=== PATIENT | female | born 1945 | race Caucasian/White ===

== ENCOUNTER 2016-09-08 05:56 | Observation (INO) | payer MEDICARE, OTHER ==
[2016-09-01 14:04] LABS: HEMATOCRIT 38.3 % (36.0-48.0); HEMOGLOBIN 12.3 g/dL (12.0-16.0)
[2016-09-01 14:18] LABS: BUN (BLOOD UREA NITROGEN) 12 MG/DL (6-23); CALCIUM, SERUM 8.9 MG/DL (8.5-10.4); CHLORIDE, SERUM 102 MMOL/L (96-112); CO2 (CARBON DIOXIDE) 29 MMOL/L (24-34); CREATININE 1.14 MG/DL (0.55-1.02); GFR AFRICAN AMERICAN 56 ML/MIN (>=60); GFR NON AFRICAN AMERICAN 49 ML/MIN (>=60); GLUCOSE, SERUM 108 MG/DL (60-99); POTASSIUM, SERUM 3.7 MMOL/L (3.5-5.3); SODIUM, SERUM 141 MMOL/L (135-148)
--- NOTE | ~2016-09-08 | OP ---
Record Of Operation [facility] [address] [place]. [address] NAME: AIDA CANCHOLA : 47 STATUS : ADM IN PAT#: [id number] AGE: 71 ADM/REG DATE : 09/08/16 MR#: [id number] REPORT SERV DATE: 09/08/16 DICTATED BY: MERRITT MEZA DATE: 09/08/16 REPORT STATUS : Draft TRANSCRIBED BY: MODL DATE: 09/08/16 DATE OF PROCEDURE: 09/08/2016 PREOPERATIVE DIAGNOSIS: L2 through S1 disk disease and stenosis with lumbar radiculopathy. POSTOPERATIVE DIAGNOSIS: L2 through S1 disk disease and stenosis with lumbar radiculopathy. PROCEDURE: L2 through S1 open laminectomy and bilateral foraminotomies, decompression of the L2-S1 nerve roots bilaterally, use of neuromonitoring. SURGEON: Merritt Meza DO. ANESTHESIA: General. ESTIMATED BLOOD LOSS: 150 mL. COMPLICATIONS: Incidental durotomy. INDICATIONS: The patient is a pleasant 71-year-old, with intractable back and leg pain, failed conservative treatment. After discussion of risks and benefits and neurologic decline, the patient elected to proceed with surgical intervention. PROCEDURE IN DETAIL: I identified the patient in the holding area. Consent was obtained, went to the operating room, underwent general anesthesia with endotracheal intubation, turned to prone position, prepped and draped in the usual sterile fashion, operative safety pause was performed, and then we proceeded with surgery. A midline longitudinal incision was made at L2 down to S1 taken down through the fascial layer. Paraspinous muscles were subperiosteally elevated to the medial aspect of the facet joints. Self-retaining retractors were placed. Nazlini elevator was placed, and lateral fluoroscopic image was used to verify operative level. Rongeur was used to remove the spinous processes and underlying lamina at L2 through S1. Kerrison removed remaining lamina and underlying ligamentum flavum, performed foraminotomies and partial facetectomies at L2 through S1, decompressing the L2-S1 nerve roots bilaterally. Each of the nerves was free of compression at the end the case, there was a small area of a dural leak from severe erosion from long-term compression. This was sealed with a suture and Tisseel sealant for watertight seal, checked with Valsalva. Irrigation was performed. Hemostasis was achieved. A gram of vancomycin powder was sprinkled over the surgical wound. A subfascial drain was placed. Layered closure was performed. Sterile dressings were applied. The patient was awoken, extubated, and taken to the recovery room in stable condition. OPERATIVE FINDINGS: L2 through S1 disk disease and severe stenosis. No sustained neuromonitoring alerts. JCE/MODL Record Of Operation [address] [address] NAME: AIDA CANCHOLA : 46 STATUS : ADM IN PAT#: [id number] AGE: 71 ADM/REG DATE : 09/08/16 MR#: [id number] REPORT SERV DATE: 09/08/16 DICTATED BY: MERRITT MEZA DATE: 09/08/16 REPORT STATUS : Draft TRANSCRIBED BY: ENRIQUE DATE: 09/08/16 Merritt Meza DO / [id number] CC: DO Artur Pack M.D.
--- NOTE | ~2016-09-08 | PREOPHP ---
PreOp History and Physical [place] [facility] [place]. [address] NAME: AIDA CANCHOLA : 46 STATUS : ADM IN PAT#: [id number] AGE: 71 ADM/REG DATE : 09/08/16 MR#: [id number] REPORT SERV DATE: 09/08/16 DICTATED BY: MERRITT MANSFIELD DATE: 09/08/16 REPORT STATUS : Draft TRANSCRIBED BY: ENRIQUE DATE: 09/08/16 CHIEF COMPLAINT: Back pain. HISTORY OF PRESENT ILLNESS: The patient is a 71-year-old female with intractable lower back pain, bilateral lower extremity pain, and feelings of weakness, failed conservative treatment including epidural injections therapy, and gabapentin. After discussion of risks and benefits, she elects to proceed with surgical intervention. REVIEW OF SYSTEMS: She denies chest pain, shortness of breath, and bowel or bladder changes. ALLERGIES: DENIED. HOME MEDICATIONS: Include Advair, Dulera, fluoxetine, Lasix, gabapentin, lansoprazole, lisinopril, Singulair, and simvastatin. FAMILY HISTORY: Noncontributory. PAST MEDICAL HISTORY: Includes hypertension, gastric reflux, high cholesterol, and COPD. PHYSICAL EXAMINATION: VITAL SIGNS: Height 5 feet 4 inches, weight 170, BMI of 29.2. GENERAL: The patient is healthy appearing. In no acute distress. PSYCH: Alert and oriented x3. Normal mood and affect. Gait is antalgic. VASCULAR: No extremity swelling. SPINE: Decreased lumbar motion. HEART: Regular rate and rhythm. LUNGS: Clear to auscultation. ABDOMEN: Soft, nontender, and nondistended. Good bowel sounds. BREASTS AND RECTAL: Both deferred. NEUROLOGIC: Strength in the lower extremities remains globally intact. No focal deficits. Although, both legs can give out with walking. IMAGING: I have reviewed the MRI scan and x-rays. The patient has L2 through S1 disk disease and stenosis with nerve compression. ASSESSMENT: L2-S1 disk disease and stenosis, lumbar radiculopathy, failed conservative treatment. PLAN: The patient presents today for surgical intervention. Consent was obtained. All questions were answered. She is ready to proceed with surgical intervention. ANGUS/ENRIQUE Merritt Merrill PreOp History and Physical [address] [address] NAME: AIDA CANCHOLA : 46 STATUS : ADM IN PAT#: [id number] AGE: 71 ADM/REG DATE : 09/08/16 MR#: [id number] REPORT SERV DATE: 09/08/16 DICTATED BY: MERRITT MANSFIELD DATE: 09/08/16 REPORT STATUS : Draft TRANSCRIBED BY: MODL DATE: 09/08/16 DO Susana / [id number] CC: DO Artur Pack M.D.
--- NOTE | ~2016-09-08 | DS ---
Discharge Summary [facility] [address] [place]. [address] NAME: AIDA CANCHOLA : 47 STATUS : DIS Ifeanyi PAT#: [id number] AGE: 71 ADM/REG DATE : 09/08/16 MR#: [id number] REPORT SERV DATE: 09/17/16 DICTATED BY: MERRITT MEZA DATE: 09/16/16 REPORT STATUS : Draft TRANSCRIBED BY: ENRIQUE DATE: 09/16/16 Data Collection from hospitalization DISCHARGE DIAGNOSES: 1. L2 through S1 disk disease and stenosis with lumbar radiculopathy. 2. Hypertension. 3. Gastric reflux. 4. Hypercholesterolemia. 5. Chronic obstructive pulmonary disease. 6. History of lung cancer. 7. Anxiety and depression. 8. Former smoker. CONSULTATION: Dr. Kwabena Bar. Gloria Thurman NP PROCEDURES: L2 through S1 open laminectomy and bilateral foraminotomies, decompression of L2 S1 nerve roots bilaterally, use of neuromonitoring, 09/08/2016. PATHOLOGY: Vertebral bone and soft tissue, lumbar spine-osteopenia. No inflammation or crystal. DISCHARGE MEDICATIONS: Acetylcysteine 600 mg twice a day, Flexeril 10 mg every eight hours as needed, Prozac 40 mg at bedtime, Advair Diskus one puff via inhaler twice a day, Lasix 40 mg daily, Neurontin 600 mg at bedtime, Prevacid 30 mg daily, Zestril 30 mg at bedtime, Zocor 40 mg at bedtime, Ultram 50 mg every eight hours as needed, multivitamins as instructed. CONDITION ON DISCHARGE: Stable. DISPOSITION: The patient was discharged home on a soft diet that would be advanced as tolerated and activities as instructed. She would follow up with her primary care provider as needed. HOSPITAL COURSE: This is a 71-year-old female, who had intractable lower back pain as well as bilateral lower extremity pain and feelings of weakness. She had failed conservative treatment, including epidural injections and gabapentin. Treatment options were discussed and it was elected to proceed with surgical intervention. She was admitted to the hospital at this time for further evaluation and treatment. Upon admission, she was taken to the operating room, where she underwent the above-mentioned procedure. She tolerated this well and there were no complications. On postop day #1, she did have some soreness. Otherwise, she said she was feeling good. Lasix was being held. There were parameters on lisinopril. Statin agent had been started. On the 09/09/2016, she did have some nausea. She had no edema. Her lungs were clear. She was evaluated by Physical Therapy. On 09/10/2016, her nausea had improved. Percocet was stopped. She was placed on tramadol. She was seen by Gloria Thurman. The patient developed a decreased mental status after being given IV Phenergan and a total of 4 doses of Percocet over the last 24 hours. She was given Discharge Summary [facility] [address] [facility] [place]. [address] NAME: AIDA CANCHOLA : 47 STATUS : DIS Ifeanyi PAT#: [id number] AGE: 71 ADM/REG DATE : 09/08/16 MR#: [id number] REPORT SERV DATE: 09/17/16 DICTATED BY: MERRITT MEZA DATE: 09/16/16 REPORT STATUS : Draft TRANSCRIBED BY: ENRIQUE DATE: 09/16/16 Narcan and Romazicon with success during the rapid response. She was now alert and oriented x3, but was somnolent. She was arousable to speech and complained of some nausea and vomiting. She has a recent history of lung cancer and was currently undergoing targeted treatment with followup due on 09/26/2016. 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 It was felt that her somnolence and decreased mental status was likely related to opiate analgesia as well as sedating medications, including Phenergan and gabapentin. She was going to be provided an additional dose of Narcan. We would continue supportive care with oxygen. Percocet was decreased. IV Toradol was going to be added. Phenergan was discontinued. We would give her Zofran as needed. We would encourage aggressive pulmonary toilet. We would limit sedating medications to encourage the best respiratory effort. The patient was also seen by Dr. Kwabena Bar. The patient was felt to have been over-sedated. Medication changes were performed. Symptomatic management was being provided for her nausea and vomiting, which was improving. Plans were being made to remove the Dejesus catheter the following day. The next day, she was awake and alert. She was ambulating in the thurman. She was up sitting in a bedside chair. She continued to do well. She was eating and drinking. On 09/12/2016, she denied any new complaints. She was ambulating in the halls without difficulty. Her pain was controlled. Discharge instructions were given. Due to her improved and stable condition, she was discharged home with the above-stated instructions. Information collected by: Dang Huston I submit the above information as my discharge summary. RIVKA/MODL Merritt Meza DO / [id number] CC: DO Artur Pack M.D.
--- NOTE | ~2016-09-08 | CN ---
Consultation Report [place] [place]. [address] NAME: AIDA CANCHOLA : 46 STATUS : ADM IN PAT#: [id number] AGE: 71 ADM/REG DATE : 09/08/16 MR#: [id number] REPORT SERV DATE: 09/11/16 DICTATED BY: GLORIA THURMAN DATE: 09/11/16 REPORT STATUS : Draft TRANSCRIBED BY: MODL DATE: 09/11/16 DATE OF CONSULTATION: 09/10/2016 REASON FOR CONSULTATION: A stat consult post rapid response per Dr. Vanegas, the street cleaner. HISTORY OF PRESENT ILLNESS: Per report, the patient had decreased mental status after given IV Phenergan and a total of 4 doses of Percocet 5/325 (2 tabs) over the past 24 hours with the last dose on 09/09/2016 at 1846 hours. The patient is now alert and oriented x3, but somnolent. She is arousable to speech and complains of nausea and vomiting. Recent history of lung cancer and she is currently undergoing targeted treatment with followup due on 09/26. She is also post L1-L2 open posterior lumbar laminectomy on 09/08/2016, per Dr. Meza to whom she is admitted this hospitalization. She denies chest pain, palpitations, shortness of breath, wheezing, dyspnea, headache, vision disturbances, calf pain. She is naive with daughter stating that the patient historically takes ibuprofen for her neck and back pain along with her home Neurontin. Of note, in the past 24 hours, the patient was given Neurontin 600 mg p.o., Phenergan 6.25 mg IV, Percocet 5/325 mg 2 tabs p.o. 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 PAST MEDICAL HISTORY: Significant for: 1. Hypertension. 2. High cholesterol. 3. COPD. 4. Lung cancer. 5. C-spine stenosis. 6. Sciatic nerve pain. 7. Lumbar spine stenosis. 8. GERD. 9. Elevated liver enzymes per oncologist. 10.Cholecystitis. 11.Anxiety. 12.Depression. PAST SURGICAL HISTORY: Significant for: 1. L1-L2 open posterior lumbar laminectomy, 09/08/2016. 2. C-spine surgery 1986 and 09/2015. 3. Right foot surgery x2, 1996. 4. Left foot surgery, 2001. 5. Partial hysterectomy, 1996. 6. Breast implants, 1996. 7. Bilateral intraocular lens implant, 2012. The patient's PCP is Dr. Artur Davis. She follows with hand spring repairer Vickey Vanegas as Consultation Report [place] [address] [place]. [address] NAME: AIDA CANCHOLA : 47 STATUS : ADM IN PAT#: [id number] AGE: 71 ADM/REG DATE : 09/08/16 MR#: [id number] REPORT SERV DATE: 09/11/16 DICTATED BY: GLORIA THURMAN DATE: 09/11/16 REPORT STATUS : Draft TRANSCRIBED BY: ENRIQUE DATE: 09/11/[address] Grayson Pope and Dr. Souza for Oncology and Radiology. 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 SOCIAL HISTORY: The patient is a former smoker, having quit greater than 20 years ago. She has 4 Margaritas a year on, does admit to, special occasions and denies illicit drug use. She is accompanied tonight by her daughter Mattie. FAMILY HISTORY: Her mother had a history of CHF. Her father when the patient was age 7 and his medical history is unknown. The patient's sister of complications related to breast cancer and subsequent lung cancer. ALLERGIES: INCLUDE ASPIRIN. HOME MEDICATIONS: Include: 1. Acetylcysteine 600 mg p.o. twice daily. 2. Prozac 40 mg p.o. at bedtime. 3. Advair Diskus 250/50 one puff inhaled twice daily. 4. Lasix 40 mg p.o. daily. 5. Neurontin 600 mg p.o. every bedtime. 6. Prevacid 30 mg p.o. daily. 7. Lisinopril 30 mg p.o. every bedtime. 8. Zocor 40 mg p.o. every bedtime. 9. Multivitamin one p.o. daily. REVIEW OF SYSTEMS: A complete 10-point review of systems was negative except as per HPI. PHYSICAL EXAMINATION: VITAL SIGNS: T 98.4, P 101, BP 130/80, R 16, SpO2 97% on 3 L nasal cannula. GENERAL: Well-appearing female, in no acute distress. NEURO: Somnolent, but arousable to speech, oriented x3 when awake. Moves all extremities x4 spontaneously and to command with weakness noted. HEENT: PERRL at 3. Normocephalic, atraumatic without lymphadenopathy. NECK: Supple with no JVD and no nodes. CHEST: No tenderness to palpation. LUNGS: Shallow respiratory effort. Scattered wheezes throughout. CV: No murmurs, rubs, gallops or click with regular rhythm. S1-S2 auscultated. ABDOMEN: Soft, round, nontender. Hypoactive bowel sounds in all quadrants. No masses. EXTREMITIES: No cyanosis or edema. Normal distal pulses. Cap refill within normal limits. PSYCH: Normal affect while awake, somnolent as above. SKIN: Clean, dry, and intact with mucous membranes pink and moist. PERTINENT LABS: By I-STAT: Sodium 132, potassium 4.3, ionized calcium 5.1, glucose 126. Arterial pH of 7.28, CO2 of 55, bicarb 26. Hematocrit 28, hemoglobin 9.5. Consultation Report [address] [place]. [address] NAME: AIDA CANCHOLA : 47 STATUS : ADM IN PAT#: [id number] AGE: 71 ADM/REG DATE : 09/08/16 MR#: [id number] REPORT SERV DATE: 09/11/16 DICTATED BY: GLORIA THURMAN DATE: 09/11/16 REPORT STATUS : Draft TRANSCRIBED BY: MODL DATE: 09/11/16 PERTINENT IMAGING: Chest x-ray, done on 09/09/2016, at [address] Zhao shows no acute process. No evidence of aspiration. ASSESSMENT AND PLAN: 1. Somnolence/decreased mental status. This is likely related to opiate analgesia as well as sedating medications including Phenergan and gabapentin. We will provide additional doses of Narcan, which the patient was given during the rapid response. We will offer continued supportive care with oxygen as well as frequent checks. We will monitor her with continuous pulse ox monitoring as well as Med/Surg telemetry. We will decrease her Percocet pain dose, add Toradol IV, and keep her frequent check on her labs. 2. Nausea and vomiting. Again, this is likely related to anesthesia versus opiate analgesia. Phenergan was discontinued after rapid response. We will decrease the opiate analgesia. We will continue Zofran as well as supportive care. Monitor labs. 3. Chronic obstructive pulmonary disease. This is chronic condition. We will provide supportive care and encourage aggressive pulmonary toilet. 4. Lung cancer. This is a recent diagnosis for which patient is undergoing targeted treatment. We will provide supportive care and aggressive pulmonary toilet. We will limit sedating medications to encourage best respiratory effort. Thank you for this consult. We are pleased to follow this patient with you. This consult was completed through thorough review of [facility], old records, [employer], current chart, and through thorough interview with the patient's daughter. [facility]/ENRIQUE Gloria Thurman NP / [id number] CC: DO Artur Pack M.D.
[~2016-09-08 05:56] MED LIST: 8 HOUR650 MG PO; ADVAIR250 INH; DULERA 200 MCG/13 GM INH; FLEX PO; L40 PO; LEVAQUIN750 MG PO; MOBIC15 MG PO; MULTIVIT/MIN PO; NAC600 MG PO; NEUR300 PO; NORCO1 TA1 PO; PCET PO; POT GLUCONAT550 M1 PO; PREV30 PO; PROZAC40 MG PO; SINGULAIR1 PO; ZESTRIL30 MG PO; ZOCOR40 PO
[2016-09-08 10:58] LABS: BASOPHILS 0.3 %; BASOPHILS ABSOLUTE 0.03 10/3/uL (0.0-0.16); EOSINOPHILS 0.3 %; EOSINOPHILS ABSOLUTE 0.03 10/3/uL (0.0-0.53); IMMATURE GRANULOCYTES 0.3 %; IMMATURE GRANULOCYTES ABSOLUTE 0.03 10/3/uL (0.0-0.11); LYMPHOCYTES 10.1 %; LYMPHOCYTES ABSOLUTE 0.87 10/3/uL (0.67-4.30); MEAN CORPUS HGB CONC 32.4 g/dL (32.0-36.0); MEAN CORPUSCULAR HEMOGLOB 28.7 pg (26.0-34.0); MEAN CORPUSCULAR VOLUME 88.4 fL (80-100); MEAN PLATELET VOLUME 9.8 fL (9.2-13.0); MONOCYTES 2.2 %; MONOCYTES ABSOLUTE 0.19 10/3/uL (0.21-1.20); NEUTROPHILS 86.8 %; NEUTROPHILS ABSOLUTE 7.45 10/3/uL (2.02-8.40); PLATELET COUNT 237 10/3/uL (150-400); RBC DISTRIBUTION WIDTH 13.4 % (12.0-16.0); RED CELL COUNT 3.35 10/6/uL (4.0-5.6); WHITE BLOOD CELLS 8.6 10/3/uL (4.5-10.5)
[2016-09-08 10:59] LABS: HEMATOCRIT 29.6 % (36.0-48.0); HEMOGLOBIN 9.6 g/dL (12.0-16.0); MANUAL DIFF NO %
[2016-09-08 11:10] LABS: BUN (BLOOD UREA NITROGEN) 11 MG/DL (6-23); CALCIUM, SERUM 7.8 MG/DL (8.5-10.4); CHLORIDE, SERUM 110 MMOL/L (96-112); CO2 (CARBON DIOXIDE) 27 MMOL/L (24-34); CREATININE 0.92 MG/DL (0.55-1.02); GFR AFRICAN AMERICAN 73 ML/MIN (>=60); GFR NON AFRICAN AMERICAN 63 ML/MIN (>=60); GLUCOSE, SERUM 143 MG/DL (60-99); POTASSIUM, SERUM 3.7 MMOL/L (3.5-5.3); SODIUM, SERUM 143 MMOL/L (135-148)
[2016-09-09 05:12] LABS: BUN (BLOOD UREA NITROGEN) 10 MG/DL (6-23); CALCIUM, SERUM 8.5 MG/DL (8.5-10.4); CHLORIDE, SERUM 107 MMOL/L (96-112); CO2 (CARBON DIOXIDE) 29 MMOL/L (24-34); CREATININE 0.89 MG/DL (0.55-1.02); GFR AFRICAN AMERICAN 76 ML/MIN (>=60); GFR NON AFRICAN AMERICAN 66 ML/MIN (>=60); GLUCOSE, SERUM 129 MG/DL (60-99); SODIUM, SERUM 143 MMOL/L (135-148)
[2016-09-09 05:37] LABS: BASOPHILS 0.1 %; BASOPHILS ABSOLUTE 0.01 10/3/uL (0.0-0.16); EOSINOPHILS 0 %; HEMATOCRIT 28.6 % (36.0-48.0); HEMOGLOBIN 9.1 g/dL (12.0-16.0); IMMATURE GRANULOCYTES 0.2 %; IMMATURE GRANULOCYTES ABSOLUTE 0.02 10/3/uL (0.0-0.11); LYMPHOCYTES ABSOLUTE 0.87 10/3/uL (0.67-4.30); MEAN CORPUS HGB CONC 31.8 g/dL (32.0-36.0); MEAN CORPUSCULAR HEMOGLOB 29.4 pg (26.0-34.0); MEAN PLATELET VOLUME 10.4 fL (9.2-13.0); MONOCYTES 11.7 %; MONOCYTES ABSOLUTE 1.45 10/3/uL (0.21-1.20); NEUTROPHILS ABSOLUTE 10.01 10/3/uL (2.02-8.40); PLATELET COUNT 254 10/3/uL (150-400); RBC DISTRIBUTION WIDTH 13.6 % (12.0-16.0); RED CELL COUNT 3.09 10/6/uL (4.0-5.6)
[2016-09-09 05:43] LABS: MEAN CORPUSCULAR VOLUME 92.6 fL (80-100); WHITE BLOOD CELLS 12.4 10/3/uL (4.5-10.5)
[2016-09-09 05:44] LABS: MANUAL DIFF NO %
[2016-09-10 07:21] LABS: BASOPHILS 0.1 %; BASOPHILS ABSOLUTE 0.01 10/3/uL (0.0-0.16); EOSINOPHILS 0.2 %; EOSINOPHILS ABSOLUTE 0.02 10/3/uL (0.0-0.53); IMMATURE GRANULOCYTES 0.1 %; IMMATURE GRANULOCYTES ABSOLUTE 0.01 10/3/uL (0.0-0.11); LYMPHOCYTES 5.5 %; MEAN CORPUS HGB CONC 31.9 g/dL (32.0-36.0); MEAN CORPUSCULAR HEMOGLOB 29.2 pg (26.0-34.0); MEAN CORPUSCULAR VOLUME 91.6 fL (80-100); MEAN PLATELET VOLUME 10.1 fL (9.2-13.0); MONOCYTES 8.4 %; MONOCYTES ABSOLUTE 0.91 10/3/uL (0.21-1.20); NEUTROPHILS 85.7 %; NEUTROPHILS ABSOLUTE 9.29 10/3/uL (2.02-8.40); PLATELET COUNT 188 10/3/uL (150-400); RBC DISTRIBUTION WIDTH 13.5 % (12.0-16.0); RED CELL COUNT 2.74 10/6/uL (4.0-5.6); WHITE BLOOD CELLS 10.8 10/3/uL (4.5-10.5)
[2016-09-10 07:25] LABS: HEMATOCRIT 25.1 % (36.0-48.0); MANUAL DIFF NO %
[2016-09-10 07:33] LABS: ALBUMIN 2.6 G/DL (3.5-5.0); ALKALINE PHOSPHATASE 89 U/L (45-117); BUN (BLOOD UREA NITROGEN) 12 MG/DL (6-23); CALCIUM, SERUM 7.9 MG/DL (8.5-10.4); CHLORIDE, SERUM 101 MMOL/L (96-112); CO2 (CARBON DIOXIDE) 30 MMOL/L (24-34); CREATININE 0.88 MG/DL (0.55-1.02); GFR AFRICAN AMERICAN 77 ML/MIN (>=60); GFR NON AFRICAN AMERICAN 67 ML/MIN (>=60); GLOBULIN 2.5 G/DL (2.5-4.1); POTASSIUM, SERUM 4.5 MMOL/L (3.5-5.3); SGOT(AST) 62 U/L (5-40); SGPT(ALT) 50 U/L (5-65); TOTAL BILIRUBIN 0.5 MG/DL (0-1.2); TOTAL PROTEIN 5.1 G/DL (6.0-8.5)
[2016-09-10 07:34] LABS: GLUCOSE, SERUM 97 MG/DL (60-99); SODIUM, SERUM 135 MMOL/L (135-148)
[2016-09-11 06:23] LABS: BASOPHILS 0.2 %; BASOPHILS ABSOLUTE 0.02 10/3/uL (0.0-0.16); EOSINOPHILS 1.4 %; EOSINOPHILS ABSOLUTE 0.16 10/3/uL (0.0-0.53); HEMATOCRIT 27.4 % (36.0-48.0); IMMATURE GRANULOCYTES 0.2 %; IMMATURE GRANULOCYTES ABSOLUTE 0.02 10/3/uL (0.0-0.11); LYMPHOCYTES 7.7 %; LYMPHOCYTES ABSOLUTE 0.89 10/3/uL (0.67-4.30); MANUAL DIFF NO %; MEAN CORPUS HGB CONC 32.8 g/dL (32.0-36.0); MEAN CORPUSCULAR HEMOGLOB 30.3 pg (26.0-34.0); MEAN CORPUSCULAR VOLUME 92.3 fL (80-100); MEAN PLATELET VOLUME 10.3 fL (9.2-13.0); MONOCYTES 8.4 %; MONOCYTES ABSOLUTE 0.97 10/3/uL (0.21-1.20); NEUTROPHILS 82.1 %; NEUTROPHILS ABSOLUTE 9.47 10/3/uL (2.02-8.40); PLATELET COUNT 199 10/3/uL (150-400); RBC DISTRIBUTION WIDTH 13.8 % (12.0-16.0); RED CELL COUNT 2.97 10/6/uL (4.0-5.6); WHITE BLOOD CELLS 11.5 10/3/uL (4.5-10.5)
[2016-09-11 06:34] LABS: BUN (BLOOD UREA NITROGEN) 10 MG/DL (6-23); CALCIUM, SERUM 8.3 MG/DL (8.5-10.4); CHLORIDE, SERUM 107 MMOL/L (96-112); CO2 (CARBON DIOXIDE) 32 MMOL/L (24-34); CREATININE 0.78 MG/DL (0.55-1.02); GFR AFRICAN AMERICAN 89 ML/MIN (>=60); GFR NON AFRICAN AMERICAN 77 ML/MIN (>=60); GLUCOSE, SERUM 109 MG/DL (60-99); POTASSIUM, SERUM 3.9 MMOL/L (3.5-5.3); SODIUM, SERUM 143 MMOL/L (135-148)
[2016-09-12] MEDS ORDERED: FLEX PO (12:02)
[2016-09-12] MEDS ORDERED: ULTRAM50 PO (12:02)
[2017-01-05] MEDS ORDERED: POTASSIUM PO (13:08)
== END 2016-09-12 12:47 | disposition home or self-care (01) ==
LOC: SDC/OF 05:56 → PACU 10:39 → 3SO 14:01 → 5SO 09-10 00:28
PROVIDERS: Internal Medicine; Nurse Practitioner Family; Orthopaedic Surgery
PROC: 01NB0ZZ Release Lumbar Nerve, Open Approach (ICD-10-PCS; principal; 2016-09-08 08:00)
DX: M48.06 Spinal stenosis, lumbar region (principal); M48.07 Spinal stenosis, lumbosacral region; M51.17 Intervertebral disc disorders with radiculopathy, lumbosacral region; M51.16 Intervertebral disc disorders with radiculopathy, lumbar region; I10 Essential (primary) hypertension; K21.9 Gastro-esophageal reflux disease without esophagitis; E78.00 Pure hypercholesterolemia, unspecified; J44.9 Chronic obstructive pulmonary disease, unspecified; M48.02 Spinal stenosis, cervical region; K81.9 Cholecystitis, unspecified; F41.9 Anxiety disorder, unspecified; F32.9 Major depressive disorder, single episode, unspecified; M85.80 Other specified disorders of bone density and structure, unspecified site; Z90.711 Acquired absence of uterus with remaining cervical stump; Z98.890 Other specified postprocedural states; Z87.891 Personal history of nicotine dependence; Z88.8 Allergy status to other drugs, medicaments and biological substances; Z79.899 Other long term (current) drug therapy
CPT/HCPCS: 36415; 36430; 36600; 63047; 63048 ×3; 71010; 74000; 80048 ×4; 80053; 82330; 82803; 82947; 83735; 84132; 84295; 85014 ×2; 85018; 85025 ×4; 86850; 86900; 86901; 86920; 88304; 88311; 93005; 94640 ×5; 96374; 96375 ×2; 96376 ×2; 97116 ×4; 97161; A9270 ×38; G0378; G8978; G8979; J0690 ×2; J1644; J1885; J2250; J2270; J2405 ×3; J2550; J2710; J3010 ×2; J3370; P9040; P9047